=== PATIENT | male | born 1960 | race Caucasian/White ===

== ENCOUNTER 2022-11-27 10:03 | Outpatient (CLI) | payer OTHER, SELFPAY ==
[2022-11-27 13:20] LABS: Chloride* 102 mmol/L (96-114); Potassium* 3.5 mmol/L (3.6-5.1); Sodium* 140 mmol/L (135-149)
[2022-11-27 13:22] LABS: Cholesterol* 183 mg/dL (90-199)
[2022-11-27 13:23] LABS: Blood Urea Nitrogen* 16 mg/dL (7-30); Carbon Dioxide* 28 mmol/L (20-32); Creatinine* 0.8 mg/dL (0.5-1.5); Estimated Glomerular Filt Rate 101 ml/min; Glucose* 115 mg/dL (60-115); Triglycerides* 58 mg/dL (40-149)
[2022-11-27 13:24] LABS: Calcium* 9.3 mg/dL (8.4-10.6); HDL Cholesterol* 97 mg/dL (>=40); LDL Cholesterol Calculated 74 mg/dL (<100)
[2022-11-27 14:03] LABS: PSA Screen* 1.27 ng/mL (0.10-4.00)
== END 2022-11-27 10:04 | disposition home or self-care (01) ==
PROVIDERS: PCP Family Medicine; Visit Provider Family Medicine
DX: E78.5 Hyperlipidemia, unspecified (principal); I10 Essential (primary) hypertension; Z12.5 Encounter for screening for malignant neoplasm of prostate
CPT/HCPCS: 80048; 80061; 84153

== ENCOUNTER 2024-01-06 10:20 | Outpatient (CLI) | payer OTHER, SELFPAY | END 2024-01-06 10:21 | disposition home or self-care (01) | PROVIDERS: PCP Family Medicine; Visit Provider Family Medicine | DX: I10 Essential (primary) hypertension (principal); E78.2 Mixed hyperlipidemia | CPT/HCPCS: 80048; 80061 ==

== ENCOUNTER 2025-03-16 10:58 | Outpatient (CLI) | payer OTHER, SELFPAY | END 2025-03-16 10:59 | disposition home or self-care (01) | PROVIDERS: PCP Family Medicine; Visit Provider Family Medicine | DX: Z00.01 Encounter for general adult medical examination with abnormal findings (principal); E78.2 Mixed hyperlipidemia; I10 Essential (primary) hypertension; Z12.5 Encounter for screening for malignant neoplasm of prostate | CPT/HCPCS: 80048; 80061; G0103 ==